=== PATIENT | female | born 1935 | race Caucasian/White ===

== ENCOUNTER 2020-09-09 13:03 | Outpatient (REF) | payer OTHER, SELFPAY ==
--- NOTE | 2020-09-12 13:42 | MHC.AU.P13 ---
Adult Audiological Evaluation Date of Visit: 09/09/20 Reason for Appointment: Audiological evaluation due to decreased hearing. She notes difficulties hearing and understanding in most situations. She frequently asks for repetition and states that she has a very hard time hearing on the telephone. Ms. Browning reports that her children often become frustrated with her hearing difficulties and note that the TV is very loud. Ms. Browning has vision deficits and was unable to complete the case history form today. Does patient feel they have a hearing loss?: Yes If Yes, Which Ear?: Both Ears When Was Hearing Difficulty First Noticed?: Gradually over time Has hearing been tested previously?: No Medical History: Medical History: High Blood Pressure Medical History (Other): Per medical history: Presbyopia, anemia, chronic kidney disease, osteoporosis, spinal cervical stenosis Allergies: Scopalamine Medication List: Acetaminophen 500 mg 2 tablets PRN, Calcium Carbonate 500 mg 2x daily, Duloxetine 30 mg 1x daily, Lorazepam 0.5 mg PRN, Melatonin 3mg 3 tablets at bedtime, Miralax 17g daily, Pantoprazole 40 mg 1x daily, Vitamin B12 500 mcg 1x daily, Vitamin D3 2000 intl units capsule 1x daily. Otoscopy: Right Ear: Unremarkable Left Ear: Unremarkable Tympanometry: Right Ear: Normal Middle Ear System (Type A) Left Ear: Normal Middle Ear System (Type A) Hearing Evaluation: Transducer(s) Used: Insert Earphones Method: Conventional Audiometry Stimuli Used: Pure Tones Right Ear: Description of Hearing: Mild sloping to moderately severe sensorineural hearing loss from 250-8000 Hz. Left Ear: Description of Hearing: Mild sloping to severe sensorineural hearing loss from 250-8000 Hz. Speech Recognition Threshold (SRT): Method Used: Monitored Live Voice Stimuli Used: Spondee Words Right Ear: 35 dBHL Left Ear: 35 dBHL Word Discrimination: Method: Recorded Lists Word Lists Used: NU-6 Right Ear: 68% at 80 dBHL Left Ear: 80% at 80 dBHL Recommendations: Recommendations: Audiological re-evaluation in one year. Trial with amplification is recommended. Medical clearance from a physician is required before fitting. See Hearing Aid Evaluation report for more information. Diagnosis: Primary Diagnosis: H90.3 Bilateral Sensorineural Hearing Loss Services Performed: Services Performed: Comprehensive Audiological Evaluation (CPT 17320) Tympanometry (CPT 38283) Signature: Provider: Rod Armendariz, CCC-A
--- NOTE | 2020-09-12 13:43 | MHC.AU.P13 ---
Hearing Aid Evaluation- Binaural Date of Visit: 09/09/20 Description of Hearing: Mild to moderately severe/severe sensorineural hearing loss bilaterally. Summary: Ms. Browning reports difficulties hearing and understanding in most situations. She notes that her hearing loss has caused communication difficulties with her family, both in person and over the phone. Today's testing indicates a mild to moderately severe/severe sensorineural hearing loss bilaterally. She is considered a good candidate for amplification to facilitate improved communication. Hearing aid styles and technologies were discussed. Ms. Browning notes significant vision and dexterity deficits. Rechargeable ITE style hearing aids are recommended. She is agreeable to this recommendation. Hearing Instrument Selection: Right Ear: Locomotive Operator Helper: StyleFeeder Model: Alexander 1600 ITE-R Full shell Battery Size: Rechargeable Color: [place] Left Ear: Locomotive Operator Helper: Marquise Model: Alexander 1600 ITE-R Full shell Battery Size: Rechargeable Color: [place] Recommendations: Recommendations: Requesting approval for hearing aids from [facility] [employer]. It is highly recommended that a family member or caregiver attend the hearing aid fitting appointment to learn about hearing aid use and care, as giving Ms. Browning's medical history she may have difficulty managing hearing aid care and use independently. Diagnosis Code(s): Primary Diagnosis: H90.3 Bilateral Sensorineural Hearing Loss Signature: Provider: Rod Armendariz, CCC-A
--- NOTE | 2020-09-12 13:45 | MHC.AU.MED ---
Medical Clearance for Hearing Instrumentation Date: 09/12/20 Patient Name: Oksana Browning Date of : 1935 Dear Valerio Telles MD, We have seen your patient on 09/12/20 and have determined that they are a candidate for amplification (See accompanying report). Specifically, they would benefit from: Hearing aid use in both ears There is a statute that addresses Medical Evaluation Requirements prior to fitting a patient with a hearing aid. According to [place] statute [facility] CMR:6.03(1), (a) General. Except as provided in 265 CMR 6.03(1)(b), a manager of patient shall not sell a hearing aid unless the prospective user has presented to the manager of patient a written statement signed by a licensed physician that states that the patient's hearing loss has been medically evaluated and the patient may be considered a candidate for a hearing aid. The medical evaluation must have taken place within the preceding six months. Please note: Due to the [place] Statute referenced above, we cannot accept a signature other than that of a licensed physician. VOLUNTEER ASSISTANT and PA signatures cannot be accepted. I am in agreement with the above recommendation. There is no medical contraindication for hearing instrumentation. Physician Signature Date Physician Name (Printed)
== END 2020-09-09 13:04 | disposition home or self-care (01) ==
LOC: HO.SH 13:03
PROVIDERS: PCP Internal Medicine; Referring Provider Internal Medicine; Visit Provider Internal Medicine
DX: H90.3 Sensorineural hearing loss, bilateral (principal)
CPT/HCPCS: 92557; 92567; 92591; V5264; V5275

== ENCOUNTER 2020-11-25 14:59 | Outpatient (REF) | payer OTHER, SELFPAY ==
--- NOTE | 2020-11-25 16:30 | MHC.AU.P13 ---
Hearing Instrument Fitting- Adult- Binaural Date of Visit: 11/25/20 Hearing Instruments Dispensed: Right Ear: Stitch Bonding Machine Drawer In: Snipshot Model: Alexander 1600 ITE-R Full shell Serial Number: [id number] Repair Warranty: 10/29/2023 Remake warranty: 10/29/2021 Loss and Damage Warranty: 10/29/2023 Battery Size: Rechargeable Color: [place] Type of Wax Guard: HearClear Left Ear: Stitch Bonding Machine Drawer In: Snipshot Model: Alexander 1600 ITE-R Full shell Serial Number: [id number] RepairWarranty: 10/29/2023 Remake warranty: 10/29/2021 Loss and Damage Warranty: 10/29/2023 Battery Size: Rechargeable Color: [place] Type of Wax Guard: HearClear Accessories/Assistive Technology: Head Of Ict- SN: [id number], Warranty: 10/29/2021 Summary of Fitting: Ms. Browning was seen for a hearing aid fitting today. She was seen here on 09/12/20 at which time she was diagnosed with a bilateral mild to moderately severe/severe sensorineural hearing loss. She reports significant difficulties hearing and understanding speech in most situations and binaural amplification was recommended to facilitate improved communication. Hearing aids were programmed to Ms. Browning's hearing loss and set to adaptation level 3. Feedback measures and real ear verification were run. Adjustments were made to better match real ear targets. She reported comfortable fit and sound quality. Ms. Browning has poor vision and dexterity, so she had some trouble inserting/removing the hearing aids. Practiced a number of times. She lives with her son who will help her if needed. Recommendations: Recommendations: Hearing instrument care and maintenance were discussed and practiced. See handouts for care/use instructions and battery information. A hearing instrument follow-up was scheduled for 12/16/20. Diagnosis Code(s): Primary Diagnosis: H90.3 Bilateral Sensorineural Hearing Loss Signature: Provider: Rod Armendariz, [facility]
== END 2020-11-25 15:00 | disposition home or self-care (01) ==
LOC: HO.HAP 14:59
PROVIDERS: Visit Provider Internal Medicine
DX: Z46.1 Encounter for fitting and adjustment of hearing aid (principal); H90.3 Sensorineural hearing loss, bilateral
CPT/HCPCS: V5011; V5020; V5160; V5260

== ENCOUNTER 2021-09-08 14:22 | Outpatient (REF) | payer SELFPAY | END 2021-09-08 14:23 | disposition home or self-care (01) | LOC: HO.HAP 14:22 | PROVIDERS: Visit Provider Internal Medicine | DX: Z13.89 Encounter for screening for other disorder (principal) ==

== ENCOUNTER 2021-09-20 09:05 | Outpatient (REF) | payer SELFPAY | END 2021-09-20 09:06 | disposition home or self-care (01) | LOC: HO.HAP 09:05 | PROVIDERS: Visit Provider Internal Medicine | DX: Z46.1 Encounter for fitting and adjustment of hearing aid (principal); H91.03 Ototoxic hearing loss, bilateral | CPT/HCPCS: V5267 ==

== ENCOUNTER 2021-10-12 13:58 | Outpatient (REF) | payer SELFPAY ==
--- NOTE | 2021-10-12 14:24 | MHC.AU.HFU ---
Hearing Instrument Follow-Up- Binaural Date of Visit: 10/12/21 Right Ear: Family Service Aide: Marquise Model: Alexander 1600 ITE-R Full shell Serial Number: [id number] Repair Warranty: 10/29/2023 Remake warranty: 10/29/2021 Loss and Damage Warranty: 10/29/2023 Battery Size: Rechargeable Color: [place] Type of Wax Guard: HearClear Dispensed By: [facility] Date of Fittin11/25/2020 Left Ear: Family Service Aide: Marquise Model: Alexander 1600 ITE-R Full shell Serial Number: [id number] Repair Warranty: 10/29/2023 Remake warranty: 10/29/2021 Loss and Damage Warranty: 10/29/2023 Battery Size: Rechargeable Color: [place] Type of Wax Guard: HearClear Dispensed By: [facility] Date of Fittin11/25/2020 Follow-Up Summary: Both aids dropped off. Right aid shell is broken into a few pieces and left aid was worn in the shower, not working. Both sent out for repair under warranty. Recommendations: Call patient when repairs received. Diagnosis Code(s): Primary Diagnosis: H90.3 Bilateral Sensorineural Hearing Loss Services Performed: MORAN Non-Quantity Charges: HANC: NonBillable Event Signature: Provider: Rod Guzman, [facility]
== END 2021-10-12 13:59 | disposition home or self-care (01) ==
LOC: HO.HAP 13:58
PROVIDERS: Visit Provider Internal Medicine
DX: Z13.89 Encounter for screening for other disorder (principal)

== ENCOUNTER 2021-10-25 11:15 | Outpatient (REF) | payer SELFPAY | END 2021-10-25 11:16 | disposition home or self-care (01) | LOC: HO.HAP 11:15 | PROVIDERS: Visit Provider Internal Medicine | DX: Z46.1 Encounter for fitting and adjustment of hearing aid (principal) | CPT/HCPCS: V5267 ==

== ENCOUNTER 2021-12-26 14:00 | Outpatient (REF) | payer SELFPAY | END 2021-12-26 14:01 | disposition home or self-care (01) | LOC: HO.HAP 14:00 | PROVIDERS: Visit Provider Internal Medicine | DX: Z13.89 Encounter for screening for other disorder (principal) ==

== ENCOUNTER 2022-01-08 10:25 | Outpatient (REF) | payer SELFPAY | END 2022-01-08 10:26 | disposition home or self-care (01) | LOC: HO.HAP 10:25 | PROVIDERS: Visit Provider Internal Medicine | DX: Z13.89 Encounter for screening for other disorder (principal) ==

== ENCOUNTER 2022-09-25 10:26 | Outpatient (REF) | payer OTHER, SELFPAY ==
--- NOTE | 2022-09-25 11:49 | MHC.AU.HFU ---
Hearing Instrument Follow-Up- Binaural Date of Visit: 09/25/22 Right Ear: Serial Number: Maruqise Buck ITE, [id number], default pink Repair Warranty: 10/29/2023 Remake warranty: 10/29/2021 Loss and Damage Warranty: USED 01/08/2022 Battery Size: Rechargeable Type of Wax Guard: HearClear Dispensed By: [facility] Date of Fittin11/25/2020 Left Ear: Serial Number: Marquise HOPKINS, [id number], default pink Repair Warranty: 10/29/2023 Remake warranty: 10/29/2021 Loss and Damage Warranty: USED 01/08/2022 Battery Size: Rechargeable Type of Wax Guard: HearClear Dispensed By: [facility] Date of Fittin11/25/2020 Follow-Up Summary: The patient was here for an updated audiogram followed by a hearing aid check. Hearing is essentially stable with a slight mid-frequency shift compared to 09/09/2020 audiogram. The patient reports her hearing aids are broken and that she hasn't been hearing well with them for several months therefore she hasn't been wearing them. Visual inspection was unremarkable. I did clean the hearing aids and change the wax guards and microphone covers. Listening check revealed clear sound bilaterally. I re-programmed the hearing aids to today's audiogram. I disabled the push button as it previously shut off the hearing aids. I also replaced the collective bargaining specialist cord with a clinic stock cord as it was very easily falling out. The patient reported very good sound bilaterally. I counseled her on today's findings. No other questions or concerns are reported. Her son does help her with her hearing aids. She should return in 1 year for audiogram + check, sooner if concerns arise. No charge today, under warranty. Diagnosis Code(s): Primary Diagnosis: H90.3 Bilateral Sensorineural Hearing Loss Signature: Provider: Rod Valladares, [facility]
== END 2022-09-25 10:27 | disposition home or self-care (01) ==
LOC: HO.SH 10:26
PROVIDERS: Visit Provider Nurse Practitioner
DX: H90.3 Sensorineural hearing loss, bilateral (principal)
CPT/HCPCS: 92557